=== PATIENT | female | born 1930 | race African-American/Black ===

== ENCOUNTER 2019-02-09 18:08 | Inpatient (IN) ==
[2019-02-09] MEDS ORDERED: TYLENOL PO ONE (18:26)
--- NOTE | 2019-02-09 18:48 | PROVIDER DOCUMENTATION ---
HPI-General Adult - General Chief Complaint: Fever Stated Complaint: DIZZINESS Time Seen by Provider: 02/09/19 18:36 Source: patient, family Allergies/Adverse Reactions: Patient Allergies Allergy/AdvReac Type Severity Reaction Status Date / Time No Known Allergies Allergy Verified 09/05/17 22:28 Home Medications: Home Medication List Medication Instructions Recorded Confirmed Last Taken Type Amlodipine/Olmesartan [Corey 10/40 1 tab PO DAILY 05/13/16 09/05/17 1 Day Ago History mg] ~05/12/16 Aspirin 81 mg PO DAILY 08/13/16 09/05/17 Unknown History Carvedilol [Coreg] 3.125 mg PO BID 08/13/16 09/05/17 Unknown History ATORVAstatin [Lipitor] 40 mg PO DAILY 01/29/17 09/05/17 Unknown History Docusate Sodium [Dulcolax Stool 100 mg PO DAILY #30 capsule 09/05/17 Unknown Rx Softener] Folic Acid/Mv,Fe,Min [One Daily 1 tab PO DAILY 09/05/17 09/05/17 Unknown History For Women Tablet] Guaifenesin/Codeine Phosphate 5 ml PO 4XDAY PRN PRN 09/05/17 09/05/17 Unknown History [Guaifen-Codeine 100-10 mg/5 ml] Megestrol Acetate 40 mg PO DAILY 09/05/17 09/05/17 Unknown History - History of Present Illness -Gen Adult Nature of Presenting Problems: patient is an 89 yobf presenting to the ED today for a headache and dizziness. when asked, she denied dizziness and headache, but family reports she complained of mild dizziness this morning and a mild headache. once family told me she co mplained of it this morning she said "yeah it hurts right here" pointing at her forehead. patient denies CP, SOB, cough, congestion, urinary symptoms, N/V/D, abdominal pain. family reports she has been confused the last "few days". patient reports she has not had any other symptoms. in no acute distress on assessment. Location of Pain/Injury: reports: head Pain Radiation: reports: no radiation Quality of Pain: reports: aching Severity: reports: mild Onset/Duration: reports: this morning Timing: reports: still present Context/Activities at Onset: reports: light activity Modifying Factors: improves with: nothing Associated Symptoms: reports: dizziness, fever/chills, headaches. denies: anxiety, arm pain, back/neck pain, chest pain, constipation, cough, diaphoresis, diarrhea, EENT symptoms, fatigue, genitourinary problems, heartburn, joint pain, loss of appetite, malaise, muscle aches, sinus congestion/drainage, nausea, rash, seizure, shortness of breath, sensory/motor loss, pain with inspiration, swelling/mass in abdomen, syncope, vomiting, weakness, trouble walking Similar Symptoms Previously?: No Recently seen or treated by another doctor?: No Review of Systems - Adult - REVIEW OF SYSTEMS - ADULT Constitutional: reports: fever. denies: fatique, weight gain, weight loss Ears, Nose, Mouth & Throat: reports: no symptoms reported. denies: ear pain, throat pain Cardiovascular: reports: no symptoms reported. denies: chest pain, palpitati ons, syncope Respiratory: reports: no symptoms reported. denies: cough, shortness of breath Gastrointestinal: reports: no symptoms reported. denies: abdominal pain, diarrhea, nausea, vomiting Genitourinary: reports: no symptoms reported. denies: dysuria, frequency, flank pain, urgency Musculoskeletal: reports: no symptoms reported Integumentary: reports: no symptoms reported Neurological: reports: dizziness/vertigo. denies: headache/migraines, loss of balance, seizure, slurred speech Psychiatric: reports: no symptoms reported Endocrine: reports: no symptoms reported Hematologic/Lymphatic: reports: no symptoms reported Allergic/Immunologic: reports: no symptoms reported All Other Systems: Reviewed and Negative Past History - Adult - PAST MEDICAL HISTORY-ADULT Review of Records: reports: Old Records Reviewed, Nursing Assessment Review, Medications Reviewed Major Childhood Illnesses: reports: denies history Cardiovascular: reports: cardiac disease, HTN, hyperlipidemia Respiratory: reports: denies history Gastrointestinal: reports: denies history Obstetrical/Gynecological: reports: denies history Genitourinary: reports: denies history Musculoskeletal: reports: denies history Neurological: reports: denies history Psychiatric: reports: denies history Endocrine/Immune: reports: denies history Other Conditions: reports: denies history - PRIOR SURGERIES/PROCEDURES Surgical/Procedure History: reports: hysterectomy - PRIOR HOSPITALIZATIONS Prior Hospitalizations: reports: none - IMMUNIZATION STATUS Childhood Immunizations: See Nurse Assessment Flu Vaccine: See Nurse Assessment - FAMILY HISTORY Family History: reviewed, not pertinent - SOCIAL HISTORY Smoking: denies Physical Exam-General - PHYSICAL EXAM-ADULT Initial Vital Signs Reviewed: Yes - CONSTITUTIONAL General Appearance: appears well, alert, no apparent distress - EYES Eyes: PERRL/EOMI, pink conjunctivae - HEAD, EARS, NOSE, MOUTH & THROAT HENMT: normocephalic/atraumatic, moist mucous membranes - NECK Neck: non-tender, full range of motion, supple - RESPIRATORY Respiratory: chest non-tender, lungs clear, normal breath sounds, no pleuratic chest pain, no respiratory distress, no accessory muscle use - CARDIOVASCULAR Cardiovascular: normal peripheral pulses, regular rate, rhythm, no edema, no JVD - GASTROINTESTINAL (ABDOMEN) Abdominal Exam: normal bowel sounds, non tender, soft - LYMPHATIC Lymphatic: no adenopathy - MUSCULOSKELETAL Back Exam: normal inspection, no CVA tenderness, no vertebral tenderness Extremity: normal range of motion, non-tender, normal gait - SKIN Integumentary: normal color, normal turgor, warm/dry - NEUROLOGIC Neurologic: grossly normal, no motor/sensory deficits - PSYCHIATRIC Psych/Mental Status: normal mood/affect, normal thought content, normal thought process, oriented x 3 Progress - PLAN OF CARE/RESULTS Progress/Plan/Lab Results: Vital Signs - 8 hr 02/09/19 18:17 Temperature 103 F H Pulse Rate 91 H Respiratory Rate 18 Blood Pressure 135/67 O2 Sat by Pulse Oximetry 97 Laboratory Results - last 24 hr 02/09/19 18:21 POC Glucose 125 H Orders Category Date Time Status CBC WITH ELECTRONIC DIFF [HEME] Stat Lab 02/09/19 18:42 Uncollected CK PROFILE [SP CHEM] Stat Lab 02/09/19 18:42 Ordered COMPREHENSIVE METABOLIC PANEL [CHEM] Stat Lab 02/09/19 18:[address] Stat Lab 02/09/19 18:[address] Stat Lab 02/09/19 18:28 Received TROPONIN T Stat Lab 02/09/19 18:[address] W/POSS RFLX CULT [URINALYSIS] Stat Lab 02/09/19 18:42 Uncollected Acetaminophen [Tylenol] Med 02/09/19 18:26 Discontinued 1,000 mg PO NOW ONE EKG [EKG] Stat Ther 02/09/19 18:37 Ordered Discussed plan of care with patient and family- they understand and agree with plan of care and deny any questions at this time. 21:30- discussed plan of care with Dr. Reynoso, he agrees with plan of care and has no further recommendations. Result Diagrams: 02/09/19 19:40 02/09/19 19:40 - EKG 1 Time of EKG reading by physician:: 20:30 EKG Read and Signed by:: Kameron Reynoso EKG Interpretation (*Must complete 3 of following elements*): Abnormal (possible left atrial enlargement) Rate: 78 Rhythm: sinus QRS: RBB ST Wave: normal - CONSULTS/PCP/HOSPITALIST Notification #1 *Consult/PCP/Hospitalist*: Dr. Brock Time Discussed: 21:40 Consult Disposition: Admit Departure - Departure Date of Disposition Decision: 02/09/19 Time of Disposition Decision: 21:00 DIAGNOSIS: Dizziness Fever Qualifiers: Fever type: unspecified Qualified Code(s): R50.9 - Fever, unspecified Disposition: ADMITTED INPATIENT 09 Certified Medical Emergency: Emergent Condition: Stable - Critical Care Note This patient required my direct & personal management of CC.: No Attestation - Physician/ ALISON Attestation Patient care was provided by Advanced Practice Provider:: Yes Advanced Practice Provider:: Karyn Curran Advanced Practice Provider documentation review:: The Mid-level provider documentation, treatment plan and medical decision making was reviewed by the physician who agrees with all treatment and medical decision making by the MLP. The physician spent face to face time with patient:: No Advanced Practice Provider documentation review:: Supervising physician onsite and consulted in the evaluation and care of this patient. The physician did not have a face to face encounter with the patient.
[2019-02-09 18:55] LABS: INFLUENZA A NEGATIVE (NEGATIVE); INFLUENZA B NEGATIVE (NEGATIVE)
[2019-02-09 19:53] LABS: BASO# 0.03 X1000 (0.0-0.2); BASO% 0.8 % (0.0-0.8); EOS# 0.02 X1000 (0.0-0.7); EOS% 0.5 % (0.0-10.0); HEMOGLOBIN 13.5 g/dL (12.0-16.0); IMM GRAN# 0.01 X1000 (0.0-0.04); IMM GRAN% 0.3 % (0.0-0.5); LYMPH# 0.29 X1000 (1.2-3.4); LYMPH% 7.3 % (20.5-51.1); MCH 27.4 PG (27-31); MCHC 33.8 g/dL (33-37); MCV 81.3 FL (81-99); MONO# 0.34 X1000 (0.11-0.59); MONO% 8.6 % (1.7-9.3); MPV 10.6 FL (7.4-10.4); NEUT# 3.27 X1000 (1.4-6.5); NEUT% 82.5 % (42.2-75.2); PLT 189 X1000 (130-400); RBC 4.92 XMIL (4.2-5.4); RDW 19.2 % (11.5-14.5); WBC 3.96 X1000 (4.8-10.8)
[2019-02-09 20:13] LABS: CALCIUM 8.4 mg/dL (8.8-10.2); CREATININE 1.1 mg/dL (0.5-0.9); POTASSIUM 4.3 mmol/L (3.5-5.1); TOTAL BILIRUBIN 0.6 mg/dL (0.20-1.00); TOTAL PROTEIN 6.8 g/dL (6.3-8.3)
[2019-02-09 20:29] LABS: CK INDEX 1.5 (0.0-2.5); CK-MB 3.12 ng/mL (0.0-5.0)
[2019-02-09 20:52] LABS: BILIRUBIN URINE NEGATIVE (NEGATIVE); BLOOD URINE 1+ (NEGATIVE); CLARITY CLEAR (CLEAR); COLOR YELLOW; GLUCOSE URINE NEGATIVE (NEGATIVE); KETONE URINE TRACE mg/dL (NEGATIVE); LEUKOCYTES URINE NEGATIVE (NEGATIVE); NITRITE URINE NEGATIVE (NEGATIVE); PROTEIN URINE TRACE mg/dL (NEGATIVE); SP GRAVITY URINE 1.005; UROBILINOGEN URINE NORMAL
[2019-02-09 21:05] LABS: URINE SOURCE CATH
[2019-02-09 21:06] LABS: URINE EPITHELIAL CELLS >10 /HPF (<10); URINE RBC <10 /HPF (<10); URINE WBC <10 /HPF (<10)
[2019-02-09 21:07] LABS: URINE BACTERIA NEGATIVE /HFP; URINE CAST NONE SEEN /LPF; URINE CRYSTAL NONE SEEN /HPF; URINE SMALL ROUND CELLS RENAL PRESENT; URINE YEAST NONE SEEN /HPF
[2019-02-09] MEDS ORDERED: NS 1,000 ML IV ONE ×2 (21:40→21:42)
--- NOTE | 2019-02-09 22:06 | Diag Imaging Result Doc PS360 ---
EXAM: CHEST-2 VIEWS INDICATION: fever TECHNIQUE: 2 views COMPARISON: 06/14/2018 FINDINGS: The lungs are grossly clear. There is no discrete pleural fluid collection or pneumothorax. The cardiomediastinal silhouette and central vasculature are grossly unremarkable. IMPRESSION: No evidence of acute pathology by plain radiograph. Electronically signed by Han Shrestha 02/09/2019 10:04 PM
--- NOTE | 2019-02-09 22:45 | EKG Report ---
Test Performed on : 02/09/2019 8:17:13 PM Test Reason : dizziness Blood Pressure : / mmHG Vent. Rate : 078 BPM Atrial Rate : 078 BPM P-R Int : 140 ms QRS Dur : 136 ms QT Int : 422 ms P-R-T Axes : 040 -52 008 degrees QTc Int : 481 ms Normal sinus rhythm. Possible Left atrial enlargement Right bundle branch block Left anterior fascicular block Bifascicular block Possible Lateral infarct (cited on or before 15-DEC-2016) Cannot rule out Inferior infarct (cited on or before 15-DEC-2016) Abnormal ECG When compared with ECG of 14-JUN-2018 09:14, No significant change was found Unconfirmed Result
[2019-02-10] MEDS ORDERED: ZOFRAN IV PRN (08:28)
[2019-02-10] MEDS: ZOSYN 3.375 GM in NS 50 ML IV SCH ×3 (08:56→20:20)
[2019-02-10] MEDS: NS 1,000 ML IV SCH (08:56)
--- NOTE | 2019-02-10 20:31 | HISTORY AND PHYSICAL ---
HISTORY AND PHYSICAL ADDENDUM: Patient presented to the hospital due to confusion and disorientation. She had a fever of 103. The patient herself does not remember any symptoms and actually is still somewhat disoriented, unable to get a full history. Currently, she is awake, alert. She is in no respiratory distress. She is sitting in the bed talking to her daughter. Does have a history of hypertension, coronary [*]. We will place her on antibiotics since she had a fever of 103. Certainly could have urinary infection. Otherwise, so far no source of her fever has been found. Please see full note. cc: Vahid Brock MD
[2019-02-11] MEDS: NS 1,000 ML IV SCH ×2 (00:20→13:15)
[2019-02-11] MEDS: ZOSYN 3.375 GM in NS 50 ML IV SCH ×4 (02:04→22:02)
--- NOTE | 2019-02-11 11:11 | HISTORY AND PHYSICAL ---
CHIEF COMPLAINT: Fever and dizziness. HISTORY OF PRESENT ILLNESS: This is an 89-year-old female who presented to the emergency room with family members today after she complained to her family members that she had a headache and dizziness. She told the family member that her head hurt right here and pointed to her forehead. She did state that she was dizzy at 1 time, although when she presented to the emergency room she denied any complaints. Family members did state that she had been confused for the previous few days, although they had seen no signs of illness. She had no other complaints, other than the 1 time she complained of the headache. The patient has presented with a temperature of 103 degrees. PAST MEDICAL HISTORY: Hyperlipidemia, hypertension, cardiac disease. PAST SURGICAL HISTORY: Unknown. SOCIAL HISTORY: Denies alcohol, tobacco, or illicit drug use. ALLERGIES: No known drug allergies. HOME MEDICATIONS: A list will be obtained by the nursing staff and, once reviewed and verified, will review and start as appropriate. REVIEW OF SYSTEMS: Discussed with patient and family members. Denied any syncope, chest pain, palpitations, a cough, congestion, any nausea, vomiting, diarrhea, constipation, black or bloody vomitus or stools, any hematuria, dysuria, frequency, urgency. PHYSICAL EXAMINATION: GENERAL: This is an 89-year-old female, who is sitting up in the bed in no distress. VITAL SIGNS: Blood pressure is 147/56, heart rate of 77, respirations are 18, temperature is 97.3 degrees oral with room air saturations 99%. EYES: Pupils are equal, round, react to light. EOMS are intact. Sclerae are anicteric. HENT: Head is normocephalic, atraumatic. Mucous membranes are moist. NECK: Supple with trachea midline. CARDIOVASCULAR: Regular rate and rhythm. S1 and S2 appreciated. No murmur. No lower extremity edema. PULMONARY: Breath sounds are clear. No increased work of breathing noted. Chest rises and falls symmetric with respiration. GASTROINTESTINAL: Abdomen is soft, nontender, nondistended with bowel sounds in all 4 quadrants. GENITOURINARY: No CVA, no suprapubic tenderness. SKIN: Warm and dry. NEUROLOGIC: She is alert, oriented. LABS AND X-RAYS: WBC is 3.9 with hemoglobin 13.5, hematocrit 40 and platelets of 189. Sodium 135, potassium 4.3, BUN 20, creatinine 1.1 with a glucose of 123. Urinalysis is essentially negative. Influenza A, B and strep are negative. Blood cultures and urine cultures are pending. Chest x-ray revealed no evidence of acute pathology. ASSESSMENT AND PLAN: Fever. Blood cultures and urine cultures have been obtained, although we have no source. She does have a temperature of 103 degrees. She did complain of a headache. This could very well be sinusitis and she certainly could have urinary tract infection. We will start Zosyn and monitor blood cultures and throat culture. Further treatments pending hospital course. We will check orthostatics. Dictated by ROBINA Fong for Vahid Brock MD cc: ROBINA Fong MD
[2019-02-11] MEDS ORDERED: AZOR 10/40 MG PO SCH (12:30)
[2019-02-11 12:41] LABS: BASO# 0.09 X1000 (0.0-0.2); BASO% 2.5 % (0.0-0.8); EOS# 0.12 X1000 (0.0-0.7); EOS% 3.4 % (0.0-10.0); HEMATOCRIT 38.8 % (37.0-47.0); HEMOGLOBIN 12.9 g/dL (12.0-16.0); LYMPH# 1.23 X1000 (1.2-3.4); LYMPH% 34.6 % (20.5-51.1); MCH 27.4 PG (27-31); MCHC 33.2 g/dL (33-37); MCV 82.6 FL (81-99); MONO# 0.61 X1000 (0.11-0.59); MONO% 17.2 % (1.7-9.3); MPV 10.4 FL (7.4-10.4); NEUT% 42.3 % (42.2-75.2); PLT 182 X1000 (130-400); RDW 19.5 % (11.5-14.5); WBC 3.55 X1000 (4.8-10.8)
[2019-02-11 12:53] LABS: CALCIUM 8.2 mg/dL (8.8-10.2); CREATININE 1.3 mg/dL (0.5-0.9); POTASSIUM 4.1 mmol/L (3.5-5.1)
[2019-02-11] MEDS: ATARAX PO SCH (13:15)
[2019-02-11] MEDS: MEGACE PO SCH (13:15)
[2019-02-11] MEDS: BENICAR PO SCH (13:15)
[2019-02-11] MEDS: HYDREA PO SCH (13:15)
[2019-02-11] MEDS: ASPIRIN PO SCH (13:15)
[2019-02-11] MEDS: NORVASC PO SCH (13:15)
[2019-02-11] MEDS: COREG PO SCH (22:02)
[2019-02-11] MEDS: LIPITOR PO SCH (22:02)
--- NOTE | 2019-02-11 23:41 | PROGRESS NOTE ---
DATE: 02/11/2019 SUBJECTIVE: The patient herself notes that she is feeling better. She denies any confusion or disorientation. OBJECTIVE: Temperature 98.6 degrees with a T-max of 103 degrees, pulse 65, respiratory 18, BP 143/54.General: The patient is awake, alert. She seems much improved from admission. She is also not currently having a fever. HEENT: Normocephalic. Neck supple. CV: Regular rate. No murmurs. Chest clear, nonlabored. No wheezing, no crackles. Abdomen soft, nondistended, nontender. Extremities: Moves all extremities. ASSESSMENT: 1. Acute febrile illness, improved. 2. Acute delirium secondary to febrile illness. Appears to be improved. 3. Hypertension, stable. 4. High cholesterol, stable. PLAN: We will continue the patient in the hospital on antibiotics until the cultures are negative. Hopefully her symptoms will continue to improve, and she can be discharged home over the next 1 or 2 days. cc: Vahid Brock MD
[2019-02-12] MEDS: TYLENOL PO PRN ×2 (00:48→15:01)
[2019-02-12] MEDS: ZOSYN 3.375 GM in NS 50 ML IV SCH ×4 (02:12→20:59)
[2019-02-12] MEDS: NS 1,000 ML IV SCH ×2 (04:03→17:15)
[2019-02-12] MEDS: BENICAR PO SCH (08:34)
[2019-02-12] MEDS: ATARAX PO SCH (08:34)
[2019-02-12] MEDS: NORVASC PO SCH (08:34)
[2019-02-12] MEDS: COLACE PO SCH (08:34)
[2019-02-12] MEDS: HYDREA PO SCH (08:34)
[2019-02-12] MEDS: MEGACE PO SCH (08:34)
[2019-02-12] MEDS: ASPIRIN PO SCH (08:35)
[2019-02-12] MEDS: MIRALAX PO SCH (08:35)
[2019-02-12] MEDS: ZITHROMAX PO SCH (08:35)
[2019-02-12] MEDS: COREG PO SCH ×2 (08:35→20:59)
[2019-02-12] MEDS: THERA M PLUS PO SCH (08:35)
--- NOTE | 2019-02-12 12:58 | PROGRESS NOTE ---
DATE: 02/12/2019 SUBJECTIVE: Patient has no complaints. Denies any dysuria, urinary frequency. Denies constipation, melena. Denies cough, congestion. Denies chest pain or shortness of breath. Denies headaches. Denies any focal neurologic changes. States her dizziness is improving. OBJECTIVE: Temperature maximum 102.8 degrees early this morning, temperature current 99, pulse 90, respiratory 18, BP 152/54.General: Patient is awake, currently in no distress. Neck: Supple. No JVD. Cardiovascular: Regular rate. Chest: Clear, nonlabored, no wheezing. Abdomen: Soft, nondistended. Nontender. Extremities: Moves all extremities. Neurologic: No focal changes. ASSESSMENT: 1. Febrile illness of undetermined origin. She currently is on Zosyn. She still had fever yesterday. We will add azithromycin today. 2. Dizziness appears resolved. Expect this was secondary to hydration and fever. 3. Hyperlipidemia. 4. Hypertension. 5. Known coronary artery disease. 6. Advanced age. PLAN: Currently patient's blood and urine cultures are negative. Chest x-ray is negative. She has no current symptoms other than fever. We will continue her in the hospital, add azithromycin, and we will follow. cc: Vahid Brock MD
[2019-02-12] MEDS: LIPITOR PO SCH (20:58)
[2019-02-13] MEDS: ZOSYN 3.375 GM in NS 50 ML IV SCH ×2 (02:28→10:04)
[2019-02-13 07:42] VITALS: BP 148/55
[2019-02-13] MEDS: BENICAR PO SCH (10:04)
[2019-02-13] MEDS: THERA M PLUS PO SCH (10:04)
[2019-02-13] MEDS: COLACE PO SCH (10:04)
[2019-02-13] MEDS: ZITHROMAX PO SCH (10:04)
[2019-02-13] MEDS: ASPIRIN PO SCH (10:05)
[2019-02-13] MEDS: NORVASC PO SCH (10:05)
[2019-02-13] MEDS: ATARAX PO SCH (10:05)
[2019-02-13] MEDS: HYDREA PO SCH (10:05)
[2019-02-13] MEDS: MIRALAX PO SCH (10:05)
[2019-02-13] MEDS: COREG PO SCH (10:05)
[2019-02-13] MEDS: MEGACE PO SCH (10:05)
--- NOTE | 2019-02-13 15:19 | DISCHARGE SUMMARY ---
ADMISSION DATE: 02/09/2019 DISCHARGE DATE: 02/13/2019 DISCHARGE DIAGNOSES: 1. Fever, likely viral. 2. Dizziness, resolved. 3. Hypertension. 4. Hyperlipidemia. 5. Known coronary disease. CONSULTATIONS: None. PROCEDURES: None. BRIEF HOSPITAL COURSE: The patient is an 89-year-old female who presented to the hospital with 102 fever. She was admitted. Blood culture, urine culture, chest x-ray, all her tests effectively have been negative thus far. Thankfully, she is currently afebrile. We will discharge her home. She will continue on Omnicef at home for the next 5 days. Will follow up outpatient with primary care of choice if symptoms worsen. TIME SPENT: Greater than 35 minutes was spent in total care. No changes made on her home medications, diet or activity otherwise. cc: Vahid Brock MD
== END 2019-02-13 11:17 | disposition home or self-care (01) | DRG 866 ==
LOC: P.ED 18:08 → P.MEDSURG 23:11
PROVIDERS: ATTEND Family Medicine
CPT/HCPCS: 51701; 71020; 71046; 80048; 80053; 81001; 82550; 82553; 82948; 84484; 85025; 87040; 87081; 87275; 87276; 87430; 87804; 93005; 99285; A9270; J2543; J7030; P9612; S0176; S0179; XXXXX